=== PATIENT | male | born 1980 | race Hispanic/Latino ===

== ENCOUNTER 2017-08-11 19:14 | Emergency (ER) | payer SELFPAY ==
[2017-08-11] MEDS ORDERED: ACETAMINOPHEN 325 MG TAB ONE (21:57)
== END 2017-08-11 22:05 | disposition home or self-care (01) ==
LOC: EDH 19:14
DX: S39.011A Strain of muscle, fascia and tendon of abdomen, initial encounter (principal); K59.00 Constipation, unspecified; Z72.0 Tobacco use; X50.9XXA Other and unspecified overexertion or strenuous movements or postures, initial encounter; Y93.89 Activity, other specified; Y92.89 Other specified places as the place of occurrence of the external cause; Y99.8 Other external cause status
CPT/HCPCS: 74021